=== PATIENT | male | born 1985 | race Caucasian/White ===

== ENCOUNTER 2019-01-19 17:47 | Emergency (ER) | payer SELFPAY ==
--- NOTE | 2019-01-19 17:57 | ED.PDOC ---
History of Present Illness - General Chief Complaint: Chest Pain/MD Time Seen by Provider: 01/19/19 17:56 - History of Present Illness Initial Comments: patient is a 33 y.o. M w/ no sig pmh who presents c/o chest pain. Reports having pain off and on a couple days ago while sleeping. Initially attributed his symptoms to indigestion, but today developed L sided pain radiating to his neck and jaw. Pain is intermittent, sharp in nature, 7/10 in severity. Reports family h/o heart disease but none at a young age. No vomiting or diaphoresis. Associated with some slight shortness of breath. Allergies/Adverse Reactions: Allergies NO KNOWN ALLERGY Allergy (Verified 01/19/19 17:57) Home Medications: Ambulatory Orders NK 01/19/19 Review of Systems - Review of Systems Constitutional: States: no symptoms reported EENTM: States: no symptoms reported Respiratory: States: short of breath. Denies: cough Cardiology: States: chest pain. Denies: palpitations Gastrointestinal/Abdominal: States: no symptoms reported Genitourinary: States: no symptoms reported Musculoskeletal: States: no symptoms reported Skin: States: no symptoms reported Neurological: States: no symptoms reported Endocrine: States: no symptoms reported Hematologic/Lymphatic: States: no symptoms reported All other Systems: Reviewed and Negative Family Medical History - Family History Father Living Status: Still Living Hx Family Stroke: Yes Physical Exam - Physical Exam General Appearance: Alert, Comfortable Eyes, Ears, Nose, Throat Exam: PERRL/EOMI, normal ENT inspection Neck: full range of motion, supple Respiratory: lungs clear, normal breath sounds Cardiovascular/Chest: normal peripheral pulses, regular rate, rhythm Gastrointestinal/Abdominal: non tender, soft Extremity: normal range of motion, non-tender Neurologic: no motor/sensory deficits, alert, normal mood/affect Skin Exam: normal color Progress - Progress Progress: 01/19/19 18:10 MDM well appearing, healthy 33 y.o. M w/ no sig pmh here with chest pain, sometimes radiating to L mandible EKG with nonspecific changes. No sig risk factors. PERC negative. Plan for labs, XR, ASA, reassess. HEART score: 2 Diff dx: pericarditis, ACS 01/19/19 19:06 - Results/Orders Results/Orders: 01/19/19 18:30 EKG STAT Laboratory Results - last 24 hr 01/19/19 01/19/19 01/19/19 18:00 18:00 18:00 WBC 8.7 RBC 4.95 Hgb 15.3 Hct 45.2 MCV 91.2 MCH 31.0 MCHC 33.9 RDW 13.5 Plt Count 270 MPV 9.2 Absolute Neuts (auto) 5.60 Absolute Lymphs (auto) 2.30 Absolute Monos (auto) 0.70 Absolute Eos (auto) 0.10 Absolute Basos (auto) 0.00 Neutrophils % 64.5 Lymphocytes % 26.4 Monocytes % 8.1 Eosinophils % 0.7 L Basophils % 0.3 Sodium 137 Potassium 3.3 L Chloride 102 Carbon Dioxide 22 Anion Gap 16.3 BUN 8 Creatinine 0.77 BUN/Creatinine Ratio 10.4 Random Glucose 99 Serum Osmolality 272.2 L Calcium 10.9 H Troponin I < 0.02 - EKG/XRAY/CT Comments: NSR @ 74, normal axis & intervals, nonspecific changes XRAY: chest Xray Comments: No acute findings Departure - Departure Clinical Impression: Chest pain Qualifiers: Chest pain type: unspecified Qualified Code(s): R07.9 - Chest pain, unspecified Disposition: Discharge to Home or Self Care Condition: Good Departure Forms: ED Discharge - Pt. Copy, Patient Portal Self Enrollment Instructions: DI for Chest Pain Home Medications: Ambulatory Orders NK 01/19/19
[2019-01-19] MEDS ORDERED: ASPIRIN (CHEWABLE) 81 MG TAB PO ONE (18:04)
[2019-01-19 18:05] VITALS: TEMP 99.2
[2019-01-19] MEDS ORDERED: ALUM & MAG HYDROX-SIMETHICONE 30 ML, LIDOCAINE VISCOUS 2% 15 ML PO ONE ×2 (18:05)
[2019-01-19] MEDS ORDERED: LIDOCAINE HCL 2% (MOUTH-THROAT) 15 ML UD ONE (18:08)
[2019-01-19] MEDS ORDERED: ALUM & MAG HYDROX-SIMETHICONE 30 ML UD ONE (18:08)
--- NOTE | 2019-01-19 18:39 | RAD ---
EXAM: XR Chest, 2 Views CLINICAL HISTORY: cp TECHNIQUE: Frontal and lateral views of the chest. COMPARISON: No relevant prior studies available. FINDINGS: Limitations: None. Lungs: Unremarkable. No consolidation. Pleural space: Unremarkable. No pneumothorax. Heart: Unremarkable. No cardiomegaly. Mediastinum: Unremarkable. Bones/joints: Unremarkable. IMPRESSION: No abnormality noted. Electronically signed by: Harper Knutson MD 01/19/2019 6:37 PM CDT
[2019-01-19 19:08] VITALS: BP 114/90; O2SAT 98
== END 2019-01-19 19:12 | disposition home or self-care (01) ==
LOC: ER 17:47
DX: R07.9 Chest pain, unspecified (principal); R06.02 Shortness of breath; I25.2 Old myocardial infarction